=== PATIENT | female | born 1945 | race Caucasian/White ===

== ENCOUNTER 2017-07-16 11:50 | Day surgery (SDC) | payer MEDICARE ==
[~2017-07-16] VITALS: Ht 170.2 cm; Wt 100.2 kg
[~2017-07-16 11:50] MED LIST: ASPI81EC PO; FERGLU300 PO; HYDMOR2 PO; ONDA8 PO; OXYACE5T PO; RXHYDMOR2 PO; SOLI5 PO; TAMS.4ER PO; ZOLP5 PO
[2017-07-16] MEDS ORDERED: TRAM50 PO (12:17)
== END 2017-07-16 14:42 | disposition home or self-care (01) ==
LOC: ORSCSDS 11:50
PROVIDERS: Podiatrist
PROC: 0QBN0ZZ Excision of Right Metatarsal, Open Approach (ICD-10-PCS; principal; 2017-07-16 13:30)
DX: M20.21 Hallux rigidus, right foot (principal); E66.01 Morbid (severe) obesity due to excess calories; Z68.36 Body mass index [BMI] 36.0-36.9, adult; Z79.899 Other long term (current) drug therapy
CPT/HCPCS: J0690; J1100; J2250

== ENCOUNTER 2018-11-10 14:22 | Day surgery (SDC) | payer MEDICARE ==
[~2018-11-10 14:22] MED LIST changes: +TRAM50 PO
[2018-11-10] MEDS ORDERED: CHOL10002 PO (14:41)
[2018-11-10] MEDS ORDERED: ZINC220 PO (14:42)
[2018-11-10] MEDS ORDERED: Oyster Shell C500 MG PO (14:42)
== END 2018-11-10 16:20 | disposition home or self-care (01) ==
LOC: ORSCSDS 14:22
PROVIDERS: Ophthalmology
PROC: 08RJ3JZ Replacement of Right Lens with Synthetic Substitute, Percutaneous Approach (ICD-10-PCS; principal; 2018-11-10 16:00)
DX: H25.11 Age-related nuclear cataract, right eye (principal); H21.81 Floppy iris syndrome; E66.9 Obesity, unspecified; Z68.35 Body mass index [BMI] 35.0-35.9, adult
CPT/HCPCS: J2001; J2250; J3010; V2632

== ENCOUNTER 2018-12-15 11:19 | Day surgery (SDC) | payer MEDICARE ==
[~2018-12-15] VITALS: Ht 170.2 cm; Wt 104.9 kg
[~2018-12-15 11:19] MED LIST changes: +CHOL10002 PO; +Oyster Shell C500 MG PO; +ZINC220 PO
[2018-12-15] MEDS ORDERED: GLUC500 (12:05)
[2019-04-26] MEDS ORDERED: Evening Primro500 M1 (14:04)
== END 2018-12-15 14:01 | disposition home or self-care (01) ==
LOC: ORSCSDS 11:19
PROVIDERS: Ophthalmology
PROC: 08RK3JZ Replacement of Left Lens with Synthetic Substitute, Percutaneous Approach (ICD-10-PCS; principal; 2018-12-15 13:00)
DX: H25.12 Age-related nuclear cataract, left eye (principal); H21.81 Floppy iris syndrome; E66.01 Morbid (severe) obesity due to excess calories; Z68.36 Body mass index [BMI] 36.0-36.9, adult; Z79.899 Other long term (current) drug therapy
CPT/HCPCS: J2001; J2250; J3010; J7120; V2632

== ENCOUNTER 2019-05-03 12:41 | Day surgery (SDC) | payer MEDICARE ==
[~2019-05-03] VITALS: Ht 170.2 cm; Wt 97.8 kg
[~2019-05-03 12:41] MED LIST changes: +Evening Primro500 M1; +GLUC500
== END 2019-05-03 14:55 | disposition home or self-care (01) ==
LOC: ORSCSDS 12:41
PROVIDERS: Internal Medicine Gastroenterology
PROC: 0DBC8ZX Excision of Ileocecal Valve, Via Natural or Artificial Opening Endoscopic, Diagnostic (ICD-10-PCS; principal; 2019-05-03 14:00)
PROC: 0DBL8ZX Excision of Transverse Colon, Via Natural or Artificial Opening Endoscopic, Diagnostic (ICD-10-PCS; principal; 2019-05-03 14:00)
PROC: 0DBE8ZX Excision of Large Intestine, Via Natural or Artificial Opening Endoscopic, Diagnostic (ICD-10-PCS; principal; 2019-05-03 14:00)
DX: Z12.11 Encounter for screening for malignant neoplasm of colon (principal); Z86.010 Personal history of colon polyps; Z80.0 Family history of malignant neoplasm of digestive organs; K57.30 Diverticulosis of large intestine without perforation or abscess without bleeding; D12.3 Benign neoplasm of transverse colon; D12.0 Benign neoplasm of cecum; G47.33 Obstructive sleep apnea (adult) (pediatric); Z79.899 Other long term (current) drug therapy
CPT/HCPCS: 88305; J2704; J7120

== ENCOUNTER 2020-05-27 08:23 | Day surgery (SDC) | payer MEDICARE ==
[~2020-05-27] VITALS: Ht 170.2 cm; Wt 100.4 kg
--- NOTE | 2020-05-27 10:44 | NUR ---
05/27/20 1044 Farideh Davison 1 MG EPI ADDED TO THE FIRST BAG OF LR FOR IRRIGATION.
== END 2020-05-27 12:00 | disposition home or self-care (01) ==
LOC: ORSCSDS 08:23
PROVIDERS: Orthopaedic Surgery
PROC: 0SBD4ZZ Excision of Left Knee Joint, Percutaneous Endoscopic Approach (ICD-10-PCS; principal; 2020-05-27 10:00)
DX: M17.12 Unilateral primary osteoarthritis, left knee (principal); S83.242A Other tear of medial meniscus, current injury, left knee, initial encounter; K76.0 Fatty (change of) liver, not elsewhere classified; Z79.899 Other long term (current) drug therapy; D50.9 Iron deficiency anemia, unspecified; E78.00 Pure hypercholesterolemia, unspecified; G47.33 Obstructive sleep apnea (adult) (pediatric); E66.9 Obesity, unspecified; Z68.34 Body mass index [BMI] 34.0-34.9, adult
CPT/HCPCS: A9270-GY; J0171; J0690; J1100; J1885; J2250; J2405; J2704; J3010; J7120

== ENCOUNTER 2020-06-09 21:01 | Emergency (ER) | payer MEDICARE ==
[~2020-06-09] VITALS: Ht 170.2 cm; Wt 99.8 kg
== END 2020-06-09 22:37 | disposition home or self-care (01) ==
LOC: ER 21:01
DX: M79.662 Pain in left lower leg (principal); M25.562 Pain in left knee; Z79.899 Other long term (current) drug therapy; Z87.442 Personal history of urinary calculi
CPT/HCPCS: 93971; 99283-25

== ENCOUNTER 2022-10-05 10:31 | Day surgery (SDC) | payer MEDICARE ==
[~2022-10-05] VITALS: Ht 170.2 cm; Wt 109.2 kg
[~2022-10-05 10:31] MED LIST changes: +Calcium Carbon500 MG PO; +EVENING PRIMR1300 MG PO; -Evening Primro500 M1; -FERGLU300 PO; +FERROUS GLUCON324 M3 PO; +TRAZ50 PO
--- NOTE | 2022-10-05 19:18 | NUR ---
SHIFT SUMMARY POD0 L TKA, A/X4, VSS, TOLERATING PO, AMBULATING WITH MINIMAL ASSISTANCE, VOIDING WELL, PAIN WELL MANAGED PER EMAR, UP TO CHAIR AFTER USING THE BATHROOM JUST BEFORE END OF SHIFT. NO ACUTE EVENTS THIS SHIFT, CALL LIGHT IN REACH, REPORT GIVEN TO NOC RN.
--- NOTE | 2022-10-06 04:17 | NUR ---
SHIFT SUMMARY NO ACUTE CHANGES THIS SHIFT. LEFT KNEE DRESSING REMAINS CDI WITH POLAR PACK IN PLACE. PAIN MANAGED WITH TYLENOL/TORADOL/2 ROXICDODNE. UP WITH 1 ASSIST USING FWW + GB. VSS. USES CALL LIGHT APPROPRIATELY.
[2022-10-06 06:16] LABS: BASOPHILS ABSOLUTE AUTO 0.04 K/mm3 (0.00-0.23); BASOPHILS PERCENT AUTO 1 % (0-2); EOSINOPHILS ABSOLUTE AUTO 0.12 K/mm3 (0.00-0.68); EOSINOPHILS PERCENT AUTO 2 % (0-6); Hemoglobin 10.5 g/dL (11.5-16.0); IMMATURE GRAN ABSOLUTE AUTO 0.03 K/mm3 (0.00-0.10); IMMATURE GRAN PERCENT AUTO 0 % (0-1); LYMPHOCYTES ABSOLUTE AUTO 0.75 K/mm3 (0.84-5.20); LYMPHOCYTES PERCENT AUTO 10 % (21-46); MONOCYTES ABSOLUTE AUTO 0.54 K/mm3 (0.16-1.47); MONOCYTES PERCENT AUTO 8 % (4-13); Mean Corpuscular HGB 25.9 pg (26.0-34.0); Mean Corpuscular HGB Conc 30.9 g/dL (31.5-36.5); Mean Corpuscular Volume 84 fL (80-100); Mean Platelet Volume 11.3 fL (9.1-12.4); NEUTROPHILS ABSOLUTE AUTO 5.76 K/mm3 (1.96-9.15); NEUTROPHILS PERCENT AUTO 79 % (41-73); Platelet Count 198 K/mm3 (150-400); RDW Coefficient Variation 15.9 % (11.7-14.2); RDW Standard Deviation 49.1 fL (35.1-46.3); Red Blood Cell Count 4.05 M/mm3 (3.80-5.20); White Blood Cell Count 7.24 K/mm3 (4.00-11.30)
[2022-10-06 06:36] LABS: Calcium, Blood 8.9 mg/dL (8.5-10.1); Creatinine, Blood 0.79 mg/dL (0.40-1.00); Magnesium, Blood 2.1 mg/dL (1.6-2.4); Potassium, Blood 4.1 mmol/L (3.5-5.5)
--- NOTE | 2022-10-06 13:38 | NUR ---
POST OP BLEEDING PT WAS TAKEN DOWN TO [facility] FOR THERAPY WHEN HER DRESSING BECAME SATURATED, DRESSING WAS REINFORCED WITH 4X4 GAUZE AND AN JANNETH WRAP TO APPLY PRESSURE, PT WAS ABLE TO COMPLETE THERAPY AND WAS RETURNED TO HER ROOM AND ASSISTED INTO RECLINER CHAIR. OLD DRESSING WAS REMOVED AND SHE WAS FOUND TO HAVE A PIN HOLE SIZE LEAK ALONG THE SUPERIOR SECTION OF THE INCISION APPROXIMATELY 2 INCHES FROM THE TOP. PRESSURE WAS APPLIED USING MANUAL PRESSURE AND STERILE 4X4 GAUZE FOR ABOUT 2 MINUTES AND WAS STILL STEADILY OOZING, 2 MINUTES PRESSURE WAS REPEATED AND NO CHANGE IN THE AMOUNT THAT WAS OOZING OUT. NEW CLEAN AQUACELL WAS APPLIED AND REWRAPPED WITH CLEAN JANNETH WRAP. MESSAGE SENT TO [facility] TO HAVE HER LOOK AT IT PRIOR TO HAVING HER DISCHARGED. WILL CTM FOR ANY CHANGES IN PATIENT STATUS AND BLEEDING.
--- NOTE | 2022-10-06 19:19 | NUR ---
SHIFT SUMMARY POD1 L TKA, A/OX4, VSS, TOLERATING PO, AMBULATING WITH MINIMAL ASSISTANCE, VOIDING WELL. PT HAD A SUDDEN BLEED FROM HER INCISION DURING THERAPY (SEE NURSE NOTES), [facility] DISCUSSED SITUATION WITH THE PATIENT AND WILL BE STAYING AN ADDITIONAL NIGHT TO MONITOR FOR ANYMORE CONTINUED BLEEDING. PAIN WAS INCREASED TODAY WHICH COINCIDED WITH APPLYING INCREASED PRESSURE TO HELP STOP THE BLEEDING. PT DENIES ANY DIZZINESS. NO OTHER EVENTS THIS SHIFT. CALL LIGHT IN REACH, REPORT GIVEN TO ALEXIA RN.
--- NOTE | 2022-10-07 05:22 | NUR ---
SHIFT SUMMARY POD2 LTKA. DRESSING HAS DRIED SANGUINEOUS DRAINAGE NOTED, BLEEDING APPEARS TO HAVE STOPPED AT THIS TIME. SENSATION AND CIRCULATION REMAINS INTACT IN LLE. VSS. PT SLEPT ON AND OFF T/O THE NIGHT. PAIN WAS DIFFICULT TO CONTROL, MEDICATED REGULARLY WITH PRN'S. PT WAS ABLE TO AMBULATE SOME T/O THE NIGHT. VOIDING W/O DIFFICULTY. TOLLERATING PO INTAKE W/O N/V. PLAN FOR PT TO BE EVALUATED BY SURGEON TODAY AND D/C HOME. THE PATIENT IS CURRENTLY SLEEPING, IN NO DISTRESS, CALL LIGHT IN REACH
--- NOTE | 2022-10-07 12:40 | NUR ---
DISCHARGE NOTE: PATIENT WAS EDUCATED ON DISCHARGE INSTRUCTIONS. SHE VERBALIZED UNDERSTANDING OF INSTRUCTIONS AND HAD NO FURTHER QUESTIONS AT THIS TIME. IV WAS TAKEN OUT AND WNL. PAIN IS MANAGED WITH ORAL PAIN MEDICATIONS. HER LEFT KNEE HAS GAUZE, ABD PAD, AND JANNETH WRAP ON THAT WAS JUST CHANGED THAT IS C/D/I. DENIES NUMBNESS OR TINGLING IN ALL EXTREMITIES. SHE IS TOLERATING PO INTAKE AND IS VOIDING. SHE IS A SBA WITH FWW AND GAIT BELT. PATIENT IS DRESSED AND HAS PERSONAL ITEMS IN THE ROOM GATHERED. SHE IS BEING WHEELCHAIRED DOWN TO HER SON'S CAR TO BE TAKEN HOME.
== END 2022-10-07 12:40 | disposition home or self-care (01) ==
LOC: SURS 10:31 → ORSCMMR 10:31 → ORD 10:45 → ORSCMMR 13:15 → ORD 13:15 → SURS 16:14 → ORSCMMR 10-07 12:40
PROVIDERS: Orthopaedic Surgery
PROC: 0SRD0JA Replacement of Left Knee Joint with Synthetic Substitute, Uncemented, Open Approach (ICD-10-PCS; principal; 2022-10-05 13:15)
PROC: 8E0YXBF Computer Assisted Procedure of Lower Extremity, With Fluoroscopy (ICD-10-PCS; principal; 2022-10-05 13:15)
DX: M17.12 Unilateral primary osteoarthritis, left knee (principal)
CPT/HCPCS: 36415; 73560-LT; 80048; 83735; 85025; 97110; 97116; 97162; 97530; A9270; C1776; J0171; J0690; J0735; J1170; J1885; J2250; J2370; J2704; J2795; J3010; J7120

== ENCOUNTER 2023-07-26 05:49 | Day surgery (SDC) | payer MEDICARE ==
[2023-07-26] VITALS (11 sets, daily range): BP systolic 95–162; BP diastolic 51–75
[~2023-07-26] VITALS: Ht 167.6 cm; Wt 112.8 kg
--- NOTE | 2023-07-26 07:40 | NUR ---
KNEE HIGH PURNIMA HOSE AND CALF PAS APPLIED TO LLE. GLASSES BROUGHT TO PACU FOR SAFE KEEPING.
--- NOTE | 2023-07-26 09:56 | NUR ---
PT ARRIVED FROM PACU. UNABLE TO FEEL FEET FROM THIGH DOWN. NO WIGGLING TOES. TOES WARM TO TOUCH, CAP REFILL <3. PT DENIES PAIN. AA0X4, ON ROOM AIR. DRESSING TO R KNEE CDI.
--- NOTE | 2023-07-26 17:58 | NUR ---
SHIFT SUMMARY S/P RTKA PT PAIN MANAGED PER EMAR, AMBULATING WELL WITH THERAPY, UP TO CHAIR WORKING ON LEG EXERCISES. PLAN IS TO WORK WITH THERAPY TOMORROW MORNING AND DISHCARGE. DRESSING REMAINS CDI.
[2023-07-27 00:17] VITALS: BP 147/50
[2023-07-27 04:15] VITALS: BP 117/53
[2023-07-27 04:19] LABS: BASOPHILS ABSOLUTE AUTO 0.02 K/mm3 (0.00-0.23); BASOPHILS PERCENT AUTO 0 % (0-2); EOSINOPHILS ABSOLUTE AUTO 0.01 K/mm3 (0.00-0.68); EOSINOPHILS PERCENT AUTO 0 % (0-6); Hematocrit 27.5 % (33.0-51.0); Hemoglobin 8.3 g/dL (11.5-16.0); IMMATURE GRAN ABSOLUTE AUTO 0.03 K/mm3 (0.00-0.10); IMMATURE GRAN PERCENT AUTO 0 % (0-1); LYMPHOCYTES ABSOLUTE AUTO 0.92 K/mm3 (0.84-5.20); LYMPHOCYTES PERCENT AUTO 11 % (21-46); MONOCYTES ABSOLUTE AUTO 0.65 K/mm3 (0.16-1.47); MONOCYTES PERCENT AUTO 8 % (4-13); Mean Corpuscular HGB 24.1 pg (26.0-34.0); Mean Corpuscular HGB Conc 30.2 g/dL (31.5-36.5); Mean Corpuscular Volume 80 fL (80-100); Mean Platelet Volume 10.8 fL (9.1-12.4); NEUTROPHILS ABSOLUTE AUTO 7.06 K/mm3 (1.96-9.15); NEUTROPHILS PERCENT AUTO 81 % (41-73); Platelet Count 196 K/mm3 (150-400); RDW Coefficient Variation 18.5 % (11.7-14.2); RDW Standard Deviation 53.3 fL (35.1-46.3); Red Blood Cell Count 3.44 M/mm3 (3.80-5.20); White Blood Cell Count 8.69 K/mm3 (4.00-11.30)
[2023-07-27 04:33] LABS: Bun/Creatinine Ratio 24.2 (12.0-20.0); Calcium, Blood 8.6 mg/dL (8.5-10.1); Creatinine, Blood 0.87 mg/dL (0.40-1.00); Potassium, Blood 4.9 mmol/L (3.5-5.5)
--- NOTE | 2023-07-27 05:32 | NUR ---
POD 1 S/P R TKA. PT VSS T/O NIGHT. DRESSING CDI. PEDAL PULSES AND CAP REFILL WNL, PT DENIED N/T. PT REP FEELING MORE PAINFUL THIS AM, PAIN MGD PER EMAR W/REP RELIEF. PT CORI PO, DENIED N/V, IS VOIDING URINE W/O DIFFICULTY. PT AMB W/FWW+SBA, CORI WELL, IS UP IN CHAIR THIS AM, POLAR PACK IN PLACE. PLAN TO MOBILIZE W/PT AND DC HOME WHEN CLEARED.
[2023-07-27 07:30] VITALS: BP 122/95
[2023-07-27] MEDS ORDERED: ACET500 PO (09:47)
[2023-07-27] MEDS ORDERED: ASPI81CH PO (09:47)
[2023-07-27] MEDS ORDERED: OXYC5 PO (09:47)
--- NOTE | 2023-07-27 13:04 | NUR ---
DISCHARGE POD 1 RTKA PT AMBULATING WELL, PAIN CONTROLLED PER EMAR. PRESCRIPTIONS SENT TO PHARMACY BY DR. ISLAS. DRESSING REMAINS CDI. ALL INSTRUCTIONS GONE OVER WITH PATIENT. EXTRA DRESSINGS SENT.
== END 2023-07-27 12:51 | disposition home or self-care (01) ==
LOC: ORSCMMR 05:49 → SURS 09:49 → ORSCMMR 10:00 → ORD 10:00 → ORSCMMR 07-27 12:51
PROVIDERS: Orthopaedic Surgery
PROC: 0SRC0JA Replacement of Right Knee Joint with Synthetic Substitute, Uncemented, Open Approach (ICD-10-PCS; principal; 2023-07-26 07:30)
PROC: 8E0Y0CZ Robotic Assisted Procedure of Lower Extremity, Open Approach (ICD-10-PCS; principal; 2023-07-26 07:30)
DX: M17.11 Unilateral primary osteoarthritis, right knee (principal); Z96.652 Presence of left artificial knee joint; G47.33 Obstructive sleep apnea (adult) (pediatric); E66.9 Obesity, unspecified; Z68.41 Body mass index [BMI] 40.0-44.9, adult
CPT/HCPCS: 36415; 73560-RT; 80048; 83735; 85025; 94760; 97110; 97116; 97162; 97530; A9270; C1713; C1776; J0171; J0690; J0735; J1100; J1885; J2250; J2405; J2704; J2795; J3010; J7120

== ENCOUNTER → 2024-01-28 | Outpatient (CLI) | payer MEDICARE ==
[~2024-01-28] MED LIST changes: +ACET500 PO; +ASPI81CH PO; +OXYC5 PO
[2024-01-29 12:33] LABS: Stool Occult Bld Immuno 1 Negative (NEGATIVE)
== END | disposition home or self-care (01) ==
LOC: LAB SHORT 14:31
PROVIDERS: Family Medicine
DX: Z12.11 Encounter for screening for malignant neoplasm of colon (principal)
CPT/HCPCS: G0328

== ENCOUNTER → 2025-05-22 | Outpatient (CLI) | payer MEDICARE | LOC: LAB SHORT 11:20 → LAB 11:20 | DX: R82.998 Other abnormal findings in urine (principal) | CPT/HCPCS: 87077; 87086; 87186 ==